=== PATIENT | female | born 1935 | race Caucasian/White ===

== ENCOUNTER 2017-11-21 12:13 | Inpatient (IN) | payer MEDICARE ==
[~2017-11-21] VITALS: Ht 160 cm; Wt 75.7 kg
[~2017-11-21 12:13] MED LIST: ALLEGRA-D 1212 HOUR PO; ALLOPURINOL300 MG PO; ANTARA130 MG PO; AUGMENTIN500TAB PO; B-12 TR1000 MCG OR; B-121000 MCG; BL MAGNESIUM250 MG; BUMETANIDE0.5 MG PO; CALCIUM600 M1; CARVEDILOL25 MG PO; CYCLOBENZAPR10 MG PO; DIFLUCAN150 MG PO; FLEXERIL10 MG PO; FLEXERIL5 M1 PO; FLUOXETINE20 M2 PO; FLUOXETINE20 MG PO; HYDROCO/APAP1 T10 PO; LISINOPRIL20 MG PO; LOVASTATIN20 M1 OR; LOVASTATIN20 MG PO; LYRICA300 MG PO; NEURONTIN300 MG PO; OMEGA-3 FISH1000 MG; OMEPRAZOLE40 MG PO; PANTOPRAZOLE SO40 MG PO; PRAVASTATIN SOD20 MG PO; PRILOSEC20 MG OR; PRILOSEC20 MG PO; ROBITUSSIN AC10 ML PO; TERAZOSIN2 MG PO; TRAMADOL HCL50 MG OR; TRIAMCINOLON0.11 EX; VICODIN ES1 TAB PO; VITAMIN D1000 UNIT; [UNRECOGNIZED DRUG - OTHER] PO
[2017-11-21] MEDS ORDERED: OMEGA 31000 MG PO (12:20)
[2017-11-21] MEDS ORDERED: LISINOPRIL40 MG PO (12:21)
[2017-11-21] MEDS ORDERED: GABAPENTIN600 MG PO (12:22)
[2017-11-21] MEDS ORDERED: PLAVIX75 MG PO (12:23)
[2017-11-21] MEDS ORDERED: AMLODIPINE5 MG PO (12:23)
[2017-11-21] MEDS ORDERED: FLUOXETINE20 MG PO (12:24)
[2017-11-21] MEDS ORDERED: HM IRON65 MG PO (12:25)
[2017-11-21] MEDS ORDERED: MULTIVITAMIN WO1 TA1 PO (12:26)
[2017-11-21] MEDS ORDERED: [UNRECOGNIZED DRUG - OTHER] PO (12:27)
[2017-11-21] MEDS ORDERED: ASPIRIN ADULT L81 M3 PO (12:29)
[2017-11-21] MEDS ORDERED: HYDROCO/APAP1 T10 PO (12:29)
[2017-11-21] MEDS ORDERED: OCUVITE EYE HEALTH F PO (12:33)
[2017-11-28] VITALS (9 sets, daily range): BP systolic 118–151; BP diastolic 50–69
[2017-11-28 08:14] LABS: HEMATOCRIT 39.8 % (37.0-47.0); HEMOGLOBIN 12.9 g/dl (12.0-16.0); IMMATURE GRANULOCYTES 0.6 % (0.0-1.0); MEAN CELL VOLUME 91.5 fL CALC (80.0-100.0); MEAN CORPUSCULAR HGB 29.7 pG CALC (26.0-32.0); MEAN CORPUSCULAR HGB CONC 32.4 g/L CALC (32.0-36.0); NEUT# 7.12 thou/uL (2.00-7.15); RED BLOOD COUNT 4.35 mill/uL (4.20-5.60)
[2017-11-28 08:55] LABS: ALBUMIN 4.1 g/dL (3.2-5.0); ALKALINE PHOSPHATASE 89 u/l (38-126); ANION GAP 16 (6-22 (CALC)); BILIRUBIN, TOTAL 0.8 mg/dL (0.0-1.4); BUN 16 mg/dL (8-23); BUN/CREATININE RATIO 24 (12-20 (CALC)); CARBON DIOXIDE 23 mmol/l (22-30); CHLORIDE 110 mmol/l (95-108); CREATININE 0.7 mg/dL (0.5-1.0); GFR > 60 ML/MIN (>=60 (CALC)); GFR FOR AFR.AMER. > 60 ML/MIN (>=60 (CALC)); POTASSIUM 4.5 mmol/l (3.5-5.1); SGOT/AST 21 u/l (9-36); SGPT/ALT 17 u/l (11-66); SODIUM 145 mmol/l (137-146); TOTAL PROTEIN 6.3 g/dL (6.3-8.2)
[2017-11-29 04:25] VITALS: BP 150/64
[2017-11-29 06:02] LABS: HEMATOCRIT 32.8 % (37.0-47.0); HEMOGLOBIN 10.7 g/dl (12.0-16.0); IMMATURE GRANULOCYTES 0.5 % (0.0-1.0); MEAN CELL VOLUME 92.9 fL CALC (80.0-100.0); MEAN CORPUSCULAR HGB 30.3 pG CALC (26.0-32.0); MEAN CORPUSCULAR HGB CONC 32.6 g/L CALC (32.0-36.0); NEUT# 7.76 thou/uL (2.00-7.15); RED BLOOD COUNT 3.53 mill/uL (4.20-5.60); RED CELL DISTRI WIDTH 14.1 % (11.5-15.5)
[2017-11-29 06:18] LABS: ALBUMIN 3.2 g/dL (3.2-5.0); ALKALINE PHOSPHATASE 66 u/l (38-126); ANION GAP 14 (6-22 (CALC)); BILIRUBIN, TOTAL 1.1 mg/dL (0.0-1.4); BUN 12 mg/dL (8-23); BUN/CREATININE RATIO 18 (12-20 (CALC)); CARBON DIOXIDE 25 mmol/l (22-30); CHLORIDE 104 mmol/l (95-108); CREATININE 0.7 mg/dL (0.5-1.0); GFR > 60 ML/MIN (>=60 (CALC)); GFR FOR AFR.AMER. > 60 ML/MIN (>=60 (CALC)); POTASSIUM 4.4 mmol/l (3.5-5.1); SGOT/AST 20 u/l (9-36); SGPT/ALT 20 u/l (11-66); SODIUM 139 mmol/l (137-146); TOTAL PROTEIN 5.3 g/dL (6.3-8.2)
[2017-11-29 07:43] VITALS: BP 156/76
[2017-11-29 15:30] VITALS: BP 144/60
[2017-11-29 19:15] VITALS: BP 101/64
[2017-11-29 23:45] VITALS: BP 118/63
[2017-11-30 04:50] VITALS: BP 114/63
[2017-11-30 05:36] LABS: HEMATOCRIT 30.4 % (37.0-47.0); HEMOGLOBIN 9.9 g/dl (12.0-16.0); IMMATURE GRANULOCYTES 0.6 % (0.0-1.0); MEAN CELL VOLUME 93.8 fL CALC (80.0-100.0); MEAN CORPUSCULAR HGB 30.6 pG CALC (26.0-32.0); MEAN CORPUSCULAR HGB CONC 32.6 g/L CALC (32.0-36.0); NEUT# 7.89 thou/uL (2.00-7.15); RED BLOOD COUNT 3.24 mill/uL (4.20-5.60); RED CELL DISTRI WIDTH 14.1 % (11.5-15.5)
[2017-11-30 06:01] LABS: ANION GAP 13 (6-22 (CALC)); BUN 17 mg/dL (8-23); BUN/CREATININE RATIO 22 (12-20 (CALC)); CARBON DIOXIDE 27 mmol/l (22-30); CHLORIDE 101 mmol/l (95-108); CREATININE 0.8 mg/dL (0.5-1.0); GFR > 60 ML/MIN (>=60 (CALC)); GFR FOR AFR.AMER. > 60 ML/MIN (>=60 (CALC)); POTASSIUM 4.3 mmol/l (3.5-5.1); SODIUM 136 mmol/l (137-146)
[2017-11-30 07:53] VITALS: BP 111/32
[2017-11-30 14:52] VITALS: BP 92/36
[2017-11-30 19:00] VITALS: BP 96/47
[2017-12-01] VITALS: BP 111/47
[2017-12-01 04:52] VITALS: BP 101/52
[2017-12-01 05:39] LABS: HEMATOCRIT 29.1 % (37.0-47.0); HEMOGLOBIN 9.4 g/dl (12.0-16.0); IMMATURE GRANULOCYTES 0.5 % (0.0-1.0); MEAN CELL VOLUME 93.6 fL CALC (80.0-100.0); MEAN CORPUSCULAR HGB 30.2 pG CALC (26.0-32.0); MEAN CORPUSCULAR HGB CONC 32.3 g/L CALC (32.0-36.0); NEUT# 7.97 thou/uL (2.00-7.15); RED BLOOD COUNT 3.11 mill/uL (4.20-5.60); RED CELL DISTRI WIDTH 14.2 % (11.5-15.5)
[2017-12-01 05:56] LABS: CREATININE 1.2 mg/dL (0.5-1.0); POTASSIUM 4.1 mmol/l (3.5-5.1)
[2017-12-01 09:30] VITALS: BP 101/52
[2017-12-01] MEDS ORDERED: SURFAK240 MG/CAP PO (11:43)
[2017-12-01] MEDS ORDERED: LORTAB 7.57.5 MG PO (11:43)
== END 2017-12-01 16:03 | DRG 470 ==
LOC: MS2 11-28 07:34
PROVIDERS: Internal Medicine Geriatric Medicine; ADMIT Orthopaedic Surgery; ATTEND Orthopaedic Surgery
PROC: 0SRD0J9 Replacement of Left Knee Joint with Synthetic Substitute, Cemented, Open Approach (ICD-10-PCS; principal; 2017-11-28)
DX: M17.12 Unilateral primary osteoarthritis, left knee (principal); I10 Essential (primary) hypertension

== ENCOUNTER 2018-09-16 14:31 | Emergency (ER) | payer MEDICARE ==
[~2018-09-16] VITALS: Ht 160 cm; Wt 168.0 kg
[~2018-09-16 14:31] MED LIST changes: +AMLODIPINE5 MG PO; +ASPIRIN ADULT L81 M3 PO; +GABAPENTIN600 MG PO; +HM IRON65 MG PO; +LISINOPRIL40 MG PO; +LORTAB 7.57.5 MG PO; +MULTIVITAMIN WO1 TA1 PO; +OCUVITE EYE HEALTH F PO; +OMEGA 31000 MG PO; +PLAVIX75 MG PO; +SURFAK240 MG/CAP PO; +[UNRECOGNIZED DRUG - OTHER] PO
[2018-09-16] MEDS ORDERED: VOLTAREN1%GEL TOP (16:37)
[2018-09-16 17:00] VITALS: BP 148/71
== END 2018-09-16 17:18 | disposition home or self-care (01) ==
LOC: ED 14:31
DX: S70.02XA Contusion of left hip, initial encounter (principal); M25.552 Pain in left hip; W01.198A Fall on same level from slipping, tripping and stumbling with subsequent striking against other object, initial encounter; Y93.89 Activity, other specified; Y92.512 Supermarket, store or market as the place of occurrence of the external cause